=== PATIENT | female | born 1955 | race Two or more races ===

== ENCOUNTER 2017-11-23 12:53 | Inpatient (IN) | payer OTHER ==
[~2017-11-23] VITALS: Ht 165.1 cm; Wt 101.2 kg
[~2017-11-23 12:53] MED LIST: ADULT TUSS100 MG/5 M PO; ATACAND32 MG; AVALIDE 150/12.1 TAB; AVANDARYL 4 MG-1 TA2; AVAPRO300 MG; CIPRO750 MG PO; DIS S; HUMALOG MI100 UNIT/1; INSULIN; JANUMET XR 50-1 EAC1; JARDIANCE25 MG; LANTUS SOLOSTAR3 ML; PRAVACHOL80 MG; PRAVASTATIN SOD40 MG; PRELONE15 MG/5 ML PO; PROVENTIL S2 MG/5 ML PO; SYNTHROID150 MCG; TRAMADOL HCL50 MG PO
== END 2017-12-20 10:32 | disposition home or self-care (01) | DRG 616 ==
LOC: ER 12:53 → MEDI 20:19 → MEDJ 12-15 12:32 → MEDI 12-15 12:53
PROVIDERS: Specialist
PROC: B44HZZZ Ultrasonography of Bilateral Lower Extremity Arteries (ICD-10-PCS; 2017-11-24)
PROC: 0JBR0ZZ Excision of Left Foot Subcutaneous Tissue and Fascia, Open Approach (ICD-10-PCS; 2017-11-25)
PROC: 4A033R1 Measurement of Arterial Saturation, Peripheral, Percutaneous Approach (ICD-10-PCS; 2017-11-25)
PROC: 3E0F7GC Introduction of Other Therapeutic Substance into Respiratory Tract, Via Natural or Artificial Opening (ICD-10-PCS; 2017-11-27)
PROC: BQ3MZZZ Magnetic Resonance Imaging (MRI) of Left Foot (ICD-10-PCS; 2017-11-28)
PROC: 0JBR0ZZ Excision of Left Foot Subcutaneous Tissue and Fascia, Open Approach (ICD-10-PCS; 2017-12-03)
PROC: B246ZZZ Ultrasonography of Right and Left Heart (ICD-10-PCS; 2017-12-05)
PROC: 0Y6U0Z0 Detachment at Left 3rd Toe, Complete, Open Approach (ICD-10-PCS; principal; 2017-12-14 15:45)
DX: E11.69 Type 2 diabetes mellitus with other specified complication (principal); A41.9 Sepsis, unspecified organism; L03.116 Cellulitis of left lower limb; L97.528 Non-pressure chronic ulcer of other part of left foot with other specified severity; E11.52 Type 2 diabetes mellitus with diabetic peripheral angiopathy with gangrene; I96 Gangrene, not elsewhere classified; M86.172 Other acute osteomyelitis, left ankle and foot; I10 Essential (primary) hypertension; E78.4 Other hyperlipidemia; E03.8 Other specified hypothyroidism; M54.2 Cervicalgia; Z79.4 Long term (current) use of insulin; E11.621 Type 2 diabetes mellitus with foot ulcer; E11.65 Type 2 diabetes mellitus with hyperglycemia; E11.42 Type 2 diabetes mellitus with diabetic polyneuropathy; E11.3293 Type 2 diabetes mellitus with mild nonproliferative diabetic retinopathy without macular edema, bilateral; B95.1 Streptococcus, group B, as the cause of diseases classified elsewhere; K29.00 Acute gastritis without bleeding; K21.9 Gastro-esophageal reflux disease without esophagitis; B95.61 Methicillin susceptible Staphylococcus aureus infection as the cause of diseases classified elsewhere

== ENCOUNTER 2018-03-13 07:08 | Outpatient (CLI) | payer OTHER | END 2018-03-13 07:26 | disposition home or self-care (01) | LOC: RAD 07:08 | DX: Z12.31 Encounter for screening mammogram for malignant neoplasm of breast (principal); Z87.898 Personal history of other specified conditions; N62 Hypertrophy of breast; M12.88 Other specific arthropathies, not elsewhere classified, other specified site; M47.895 Other spondylosis, thoracolumbar region ==

== ENCOUNTER 2018-03-29 13:19 | Outpatient (CLI) | payer OTHER | END 2018-03-29 13:23 | disposition home or self-care (01) | LOC: NUCLEAR 13:19 | DX: M81.0 Age-related osteoporosis without current pathological fracture (principal) ==

== ENCOUNTER → 2019-03-15 | Outpatient (CLI) | payer OTHER | END | disposition home or self-care (01) | LOC: MAMO-SONO 10:00 | DX: Z12.31 Encounter for screening mammogram for malignant neoplasm of breast (principal); Z87.898 Personal history of other specified conditions; N63.11 Unspecified lump in the right breast, upper outer quadrant ==

== ENCOUNTER 2019-03-16 07:08 | Outpatient (CLI) | payer OTHER | END 2019-03-16 07:16 | disposition home or self-care (01) | LOC: SONOGRAMA 07:08 | DX: R10.84 Generalized abdominal pain (principal) ==

== ENCOUNTER 2020-02-06 11:59 | Emergency (ER) | payer OTHER ==
[~2020-02-06] VITALS: Ht 165.1 cm; Wt 101.2 kg
[2020-02-06] MEDS ORDERED: HUMALOG100 UNIT/2 (12:19)
[2020-02-06] MEDS ORDERED: BACTRIM DS TAB1 EACH PO (13:29)
[2020-02-06] MEDS ORDERED: DICLOFENAC SODI75 MG PO (13:29)
== END 2020-02-06 14:03 | disposition home or self-care (01) ==
LOC: ER 11:59
DX: M54.2 Cervicalgia (principal); M62.838 Other muscle spasm; L02.211 Cutaneous abscess of abdominal wall

== ENCOUNTER 2020-08-05 10:23 | Outpatient (CLI) | payer OTHER ==
[~2020-08-05 10:23] MED LIST changes: +BACTRIM DS TAB1 EACH PO; +DICLOFENAC SODI75 MG PO; +HUMALOG100 UNIT/2
== END 2020-08-05 10:39 | disposition home or self-care (01) ==
LOC: MAMO-SONO 10:23
PROVIDERS: ATTEND Internal Medicine Cardiovascular Disease
DX: Z12.31 Encounter for screening mammogram for malignant neoplasm of breast (principal); N64.59 Other signs and symptoms in breast; E03.1 Congenital hypothyroidism without goiter; Z87.892 Personal history of anaphylaxis

== ENCOUNTER 2021-05-28 09:35 | Outpatient (CLI) | payer OTHER | END 2021-05-28 09:42 | disposition home or self-care (01) | LOC: RAD 09:35 | PROVIDERS: ATTEND Podiatrist Foot Surgery | DX: M25.552 Pain in left hip (principal); E11.42 Type 2 diabetes mellitus with diabetic polyneuropathy; M79.672 Pain in left foot; M79.671 Pain in right foot ==

== ENCOUNTER 2021-07-22 11:39 | Outpatient (CLI) | payer OTHER | END 2021-07-22 11:41 | disposition home or self-care (01) | LOC: RAD 11:39 | PROVIDERS: ATTEND Internal Medicine | DX: R07.9 Chest pain, unspecified (principal) ==

== ENCOUNTER → 2022-09-20 | Outpatient (CLI) | payer OTHER | END | disposition home or self-care (01) | LOC: MAMO-SONO 10:32 | PROVIDERS: ATTEND Internal Medicine Cardiovascular Disease | DX: N63.11 Unspecified lump in the right breast, upper outer quadrant (principal); N18.32 Chronic kidney disease, stage 3b ==

== ENCOUNTER 2022-11-24 13:11 | Outpatient (CLI) | payer OTHER | END 2022-11-24 13:17 | disposition home or self-care (01) | LOC: RAD 13:11 | DX: M24.576 Contracture, unspecified foot (principal); E11.40 Type 2 diabetes mellitus with diabetic neuropathy, unspecified ==

== ENCOUNTER 2022-12-28 12:43 | Outpatient (CLI) | payer OTHER | END 2022-12-28 12:45 | disposition home or self-care (01) | LOC: NUCLEAR 12:43 | PROVIDERS: ATTEND Psychiatry & Neurology Clinical Neurophysiology | DX: G93.49 Other encephalopathy (principal) | CPT/HCPCS: 78803; A9557 ==

== ENCOUNTER 2023-03-05 13:25 | Emergency (ER) | payer OTHER ==
[~2023-03-05] VITALS: Ht 165.1 cm; Wt 102.1 kg
[2023-03-05] MEDS ORDERED: LANTUS SOL100 UNIT/1 SQ (14:16)
[2023-03-05] MEDS ORDERED: ATORVASTATIN CA20 MG PO (14:17)
[2023-03-05] MEDS ORDERED: HUMALOG100 UNIT/1 (14:17)
[2023-03-05] MEDS ORDERED: SYNTHROID88 MCG PO (14:18)
[2023-03-05] MEDS ORDERED: VAZALORE81 MG PO (14:18)
[2023-03-05] MEDS ORDERED: INDAPAMIDE1.25 MG PO (14:18)
[2023-03-05] MEDS ORDERED: JARDIANCE25 MG PO (14:19)
[2023-03-05] MEDS ORDERED: ATACAND32 MG (14:19)
[2023-03-05 17:25] LABS: HEMATOCRIT 43.7 % (36.0-45.00); HEMOGLOBIN 14.4 g/dL (12.0-15.00); MEAN CELL VOLUME 87.7 fL (80.00-100.00); MEAN CORPUSCULAR HEMOGLOBIN 28.9 pg (27.00-32.0); PLATELET COUNT 196 K/uL (150-450); RED BLOOD COUNT 4.98 M/uL (4.00-6.00); RED CELL DISTRIBUTION WIDTH 14.5 % (11.5-14.5)
[2023-03-05 17:51] LABS: CALCIUM 9.7 mg/dL (8.5-10.1); CREATININE SERUM 1.37 mg/dL (0.55-1.02); GFR 38.69; POTASSIUM 4.66 mEq/L (3.5-5.1)
== END 2023-03-05 19:07 | disposition home or self-care (01) ==
LOC: ER 13:25
PROVIDERS: General Practice
DX: J06.9 Acute upper respiratory infection, unspecified (principal); E11.9 Type 2 diabetes mellitus without complications; Z79.4 Long term (current) use of insulin; I10 Essential (primary) hypertension; Z20.822 Contact with and (suspected) exposure to COVID-19